=== PATIENT | male | born 1985 | race Caucasian/White ===

== ENCOUNTER 2016-12-31 09:58 | Emergency (ER) | payer OTHER, SELFPAY ==
[2016-12-31 10:11] VITALS: TEMP 97.9
--- NOTE | 2016-12-31 12:09 | C.PDOC ---
History Of Present Illness 31 yr old male w/o significant PMHx presents to the ER for evaluation of bilateral shoulders pain right>left, gradually developing over the past few months. Patient admits, " I work out a lot and always feels tightness in my shoulder. Few days ago pain worse after I was shoveling snow ". Patient states the pain is localized and worse with movement. Denies direct trauma, injury, headache, dizziness, neck pain, chest pain, SOB, dyspnea, diaphoresis, nausea, vomiting, denies weakness, sensory or vascular deficits to B/L UEs. Ambulate to ED for evaluation, not in any apparent distress. Time Seen by Provider: 12/31/16 11:30 Chief Complaint (Nursing): Upper Extremity Problem/Injury History Per: Patient History/Exam Limitations: no limitations Onset/Duration Of Symptoms: Gradual (few months) Current Symptoms Are (Timing): Still Present Past Medical History Reviewed: Historical Data, Nursing Documentation, Vital Signs Vital Signs: Last Vital Signs Temp 97.9 F 12/31/16 10:09 Pulse 70 12/31/16 12:58 Resp 16 12/31/16 12:58 BP 113/59 L 12/31/16 12:58 Pulse Ox 98 12/31/16 12:58 Family History: States: No Known Family Hx - Social History Hx Tobacco Use: No Hx Alcohol Use: Yes Hx Substance Use: No - Immunization History Hx Tetanus Toxoid Vaccination: No Hx Influenza Vaccination: No Hx Pneumococcal Vaccination: No Review Of Systems Except As Marked, All Systems Reviewed And Found Negative. Cardiovascular: Negative for: Chest Pain Respiratory: Negative for: Shortness of Breath Gastrointestinal: Negative for: Nausea, Vomiting Musculoskeletal: Positive for: Shoulder Pain (Bilateral, Right>Left ). Negative for: Back Pain Neurological: Negative for: Weakness, Numbness Physical Exam - Physical Exam Appears: Non-toxic, No Acute Distress Skin: Warm, Dry, No Rash Head: Atraumatic, Normacephalic Extremity: Tenderness (Bilateral shoulder - Right>Left, anterior superior shoulder tenderness), Other ((+) Muscle spasm right upper shoulder ) Neurological/Psych: Oriented x3, Normal Speech, Normal Motor, Normal Sensation ED Course And Treatment O2 Sat by Pulse Oximetry: 96 Pulse Ox Interpretation: Normal - Radiology CXR: Interpreted by Me, Viewed By Me CXR Interpretation: Yes: No Acute Disease Progress Note: ON RE-EAVLUATION, PT IS AFEBRILE, HEMODYNAMICALY STABLE. NON- TOXIC. AMBULATOYR IN ED WITH STABLE GAIT. PULSEOX 97% RA. NECK: (-) MIDLINE TENDERNESS. LUNGS: CTA B/L, BS EQUAL B/L. B/L SHOULDER; EXAM C/W SHOULDER SPRAIN, MUSCLE SPASM. FAROM, NO NEUROVASCULAR DEFICITS. XRAY REVIEW AND APPEARS NORAML, COMPARE TO OLD STUDY. PT ADVISED ON COURSE OF DS. REF. TO F/U WITH ORTHO IN 2-3 DAYS FOR RE-EAVL. RETURN IF ANY NEW CHANGES. Medical Decision Making Medical Decision Making: PLAN: * CXR * Urinalysis * Motrin PO * Valium PO Disposition Counseled Patient/Family Regarding: Studies Performed, Diagnosis, Need For Followup, Rx Given - Disposition Referrals: [facility] [Outside] [facility] [place] [Outside] Disposition: HOME/ ROUTINE Disposition Time: 11:50 Condition: GOOD Additional Instructions: NO PHYSICAL ACTIVITY FOR 1-2 WEEKS TAKE MEDICATION NEED FOR PAIN FOLLOW UP WITH ORTHO IN 2-3 DAYS FOR RE-EVALUATION. RETURN TO ED IF ANY WORSENING OR NEW CHANGES. Prescriptions: Ibuprofen [Motrin] 600 mg PO Q6 #20 tab Methocarbamol [Robaxin] 500 mg PO TID #14 tab traMADol [Ultram] 50 mg PO TID #7 tab Instructions: Muscle Strain (ED), Muscle Spasm (ED) Print Language: SOMALI - Clinical Impression Clinical Impression: Shoulder sprain, Muscle strain - PA / OFFICE AGENT / Resident Statement MD/DO has reviewed & agrees with the documentation as recorded. - Scribe Statement The provider has reviewed the documentation as recorded by the Scribe Herlinda Olson All medical record entries made by the Elizabethiblulu were at my direction and personally dictated by me. I have reviewed the chart and agree that the record accurately reflects my personal performance of the history, physical exam, medical decision making, and the department course for this patient. I have also personally directed, reviewed, and agree with the discharge instructions and disposition.
--- NOTE | 2016-12-31 12:10 | RAD ---
HISTORY: pain, injury COMPARISON: Chest x-ray performed 10/23/15 TECHNIQUE: Chest PA and lateral FINDINGS: LUNGS: No focal consolidation. Please note that chest x-ray has limited sensitivity for the detection of pulmonary masses. PLEURA: No significant pleural effusion identified. No definite pneumothorax . CARDIOVASCULAR: The cardiomediastinal silhouette appears within normal limits of size. OSSEOUS STRUCTURES: No acute osseous abnormality identified. VISUALIZED UPPER ABDOMEN: Unremarkable. OTHER FINDINGS: None. IMPRESSION: No focal consolidation, significant pleural effusion, or definite pneumothorax identified.
[2016-12-31 12:58] VITALS: BP 113/59; PULSE 70; RESP 16
[2017-01-01 17:16] VITALS: O2SAT 96
== END 2016-12-31 12:58 | disposition home or self-care (01) ==
LOC: C.ER 09:58
DX: S43.401A Unspecified sprain of right shoulder joint, initial encounter (principal); S46.911A Strain of unspecified muscle, fascia and tendon at shoulder and upper arm level, right arm, initial encounter; X58.XXXA Exposure to other specified factors, initial encounter

== ENCOUNTER 2017-06-11 14:27 | Emergency (ER) | payer OTHER ==
[2017-06-11 14:43] VITALS: TEMP 98
[2017-06-11 14:56] VITALS: BMI 28.3
[2017-06-11 16:30] VITALS: BP 113/72; PULSE 59; RESP 18; O2SAT 97
--- NOTE | 2017-06-11 16:33 | RAD ---
PROCEDURE: Bilateral Knee Radiographs. HISTORY: Knee pain COMPARISON: None available. FINDINGS: BONES: Right Knee: No acute displaced fracture. Left Knee: No acute displaced fracture. JOINTS: Right Knee: No dislocation. Left knee: No dislocation. SOFT TISSUES: Right Knee: Unremarkable. No evidence of radiopaque foreign body. Left Knee: Unremarkable. No evidence of radiopaque foreign body. JOINT EFFUSION: Right Knee: Tiny suprapatellar joint effusion. Left Knee: Tiny suprapatellar joint effusion. OTHER FINDINGS: None. IMPRESSION: Tiny bilateral suprapatellar joint effusions.
--- NOTE | 2017-06-11 16:38 | C.PDOC ---
History Of Present Illness 32 y/o male presents to ED with complaints o9f bilateral knee pain for 1 year. Patient denies injury, fall, numbness, weakness or any other complaints at this time. Time Seen by Provider: 06/11/17 14:49 Chief Complaint (Nursing): Lower Extremity Problem/Injury History Per: Patient History/Exam Limitations: no limitations Onset/Duration Of Symptoms: Days Current Symptoms Are (Timing): Still Present Past Medical History Reviewed: Historical Data, Nursing Documentation, Vital Signs Vital Signs: Last Vital Signs Temp 98.0 F 06/11/17 14:30 Pulse 59 L 06/11/17 16:30 Resp 18 06/11/17 16:30 BP 113/72 06/11/17 16:30 Pulse Ox 97 06/11/17 21:49 Family History: States: Unknown Family Hx - Social History Hx Tobacco Use: No Hx Alcohol Use: Yes Hx Substance Use: No - Immunization History Hx Tetanus Toxoid Vaccination: No Hx Influenza Vaccination: No Hx Pneumococcal Vaccination: No Review Of Systems Except As Marked, All Systems Reviewed And Found Negative. Constitutional: Negative for: Fever, Chills Musculoskeletal: Positive for: Leg Pain. Negative for: Back Pain Skin: Negative for: Rash Neurological: Negative for: Weakness, Numbness Physical Exam - Physical Exam Appears: Non-toxic, No Acute Distress Skin: Warm, No Rash Head: Atraumatic, Normacephalic Eye(s): bilateral: Normal Inspection Oral Mucosa: Moist Neck: Normal ROM, No Midline Cervical Tenderness, No Paracervical Tenderness Chest: Symmetrical Extremity: Normal ROM, No Tenderness, Capillary Refill (<2 seconds), No Deformity, No Swelling Neurological/Psych: Oriented x3, Normal Speech, Normal Motor, Normal Sensation Gait: Steady ED Course And Treatment O2 Sat by Pulse Oximetry: 97 (RA) Pulse Ox Interpretation: Normal Medical Decision Making Medical Decision Making: Xrays are negative. The patient is ambulatory in the ED with steady gait. Disposition - Disposition Referrals: [facility] [Outside] Disposition: HOME/ ROUTINE Disposition Time: 16:35 Condition: GOOD Additional Instructions: Follow up with the medical doctor within 1-2 days, Return if worsened. 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 - Scribe Statement The provider has reviewed the documentation as recorded by the Elizabethiblulu Marley All medical record entries made by the Enrique were at my direction and personally dictated by me. I have reviewed the chart and agree that the record accurately reflects my personal performance of the history, physical exam, medical decision making, and the department course for this patient. I have also personally directed, reviewed, and agree with the discharge instructions and disposition.
== END 2017-06-11 16:50 | disposition home or self-care (01) ==
LOC: C.ER 14:27
DX: M25.562 Pain in left knee (principal); M25.561 Pain in right knee
CPT/HCPCS: 73562; 96372; 99284; J1885

== ENCOUNTER 2017-11-13 14:49 | Emergency (ER) | payer OTHER ==
[2017-11-13 14:58] VITALS: BMI 26.4
[2017-11-13 15:00] VITALS: PULSE 73; TEMP 97.5; O2SAT 99
[2017-11-13 15:03] VITALS: BP 121/88; RESP 16
--- NOTE | 2017-11-13 15:27 | C.PDOC ---
Time Seen by Provider: 11/13/17 15:01 Chief Complaint (Nursing): Flu-like Symptoms Past Medical History Vital Signs: Last Vital Signs Temp 97.5 F L 11/13/17 15:01 Pulse 73 11/13/17 15:01 Resp 16 11/13/17 15:01 BP 121/88 11/13/17 15:01 Pulse Ox 99 11/13/17 15:27 Family History: States: Unknown Family Hx - Social History Hx Tobacco Use: No Hx Alcohol Use: Yes Hx Substance Use: No - Immunization History Hx Tetanus Toxoid Vaccination: No Hx Influenza Vaccination: No Hx Pneumococcal Vaccination: No ED Course And Treatment O2 Sat by Pulse Oximetry: 99 Disposition - Disposition Forms: [employer] (Malay)
--- NOTE | 2017-11-13 15:35 | C.PDOC ---
History Of Present Illness 32 yr old male presents to the ER with complaints of diffuse body pains for the past 1 year. Denies trauma, injury, fever, nausea, vomiting, weakness or numbness. Time Seen by Provider: 11/13/17 15:01 Chief Complaint (Nursing): Flu-like Symptoms History Per: Patient History/Exam Limitations: no limitations Onset/Duration Of Symptoms: Persistent (1 year) Current Symptoms Are (Timing): Still Present Past Medical History Reviewed: Historical Data, Nursing Documentation, Vital Signs Vital Signs: Last Vital Signs Temp 97.5 F L 11/13/17 15:01 Pulse 73 11/13/17 15:01 Resp 16 11/13/17 15:01 BP 121/88 11/13/17 15:01 Pulse Ox 99 11/13/17 15:35 Family History: States: No Known Family Hx - Social History Hx Tobacco Use: No Hx Alcohol Use: Yes Hx Substance Use: No - Immunization History Hx Tetanus Toxoid Vaccination: No Hx Influenza Vaccination: No Hx Pneumococcal Vaccination: No Review Of Systems Except As Marked, All Systems Reviewed And Found Negative. Constitutional: Positive for: Other ((+) diffuse body pain). Negative for: Fever Gastrointestinal: Negative for: Nausea, Vomiting Neurological: Negative for: Weakness, Numbness Physical Exam - Physical Exam Appears: Non-toxic, No Acute Distress Skin: Warm, Dry, No Rash Head: Normacephalic Oral Mucosa: Moist Lips: Normal Appearing Respiratory: Normal Breath Sounds Extremity: Normal ROM, No Tenderness, No Swelling Neurological/Psych: Oriented x3, Normal Speech, Normal Motor, Normal Sensation, Normal Reflexes ED Course And Treatment O2 Sat by Pulse Oximetry: 99 (RA) Pulse Ox Interpretation: Normal Disposition Counseled Patient/Family Regarding: Diagnosis, Need For Followup - Disposition Referrals: [facility] [Outside] [facility] [Outside] Disposition: HOME/ ROUTINE Disposition Time: 15:35 Condition: GOOD Prescriptions: Ibuprofen [Motrin] 600 mg PO Q6 #30 tab Instructions: Chronic Pain (ED) Forms: [employer] (Chinese) Print Language: ESTONIAN - Clinical Impression Clinical Impression: Chronic pain - Scribe Statement The provider has reviewed the documentation as recorded by the Elizabethiblulu Olson Provider Attestation: All medical record entries made by the Elizabethiblulu were at my direction and personally dictated by me. I have reviewed the chart and agree that the record accurately reflects my personal performance of the history, physical exam, medical decision making, and the department course for this patient. I have also personally directed, reviewed, and agree with the discharge instructions and disposition.
== END 2017-11-13 15:44 | disposition home or self-care (01) ==
LOC: C.ER 14:49
DX: G89.29 Other chronic pain (principal)